=== PATIENT | male | born 1990 | race Caucasian/White ===

== ENCOUNTER 2016-11-16 09:48 | Emergency (ER) | payer MEDICAID, OTHER ==
[~2016-11-16] VITALS: Ht 188 cm; Wt 136.4 kg
[~2016-11-16 09:48] MED LIST: NONE PER PT
[2016-11-16 14:17] VITALS: BP 138/70
== END 2016-11-16 14:19 | disposition home or self-care (01) ==
LOC: ED 13:52
DX: S02.31XA Fracture of orbital floor, right side, initial encounter for closed fracture (principal); V29.9XXA Motorcycle rider (driver) (passenger) injured in unspecified traffic accident, initial encounter; Y93.55 Activity, bike riding; Y92.488 Other paved roadways as the place of occurrence of the external cause; Y99.8 Other external cause status
CPT/HCPCS: 70486; 99284